=== PATIENT | male | born 2005 | race Caucasian/White ===

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

== ENCOUNTER 2025-06-22 19:33 | Emergency (ER) | payer SELFPAY ==
[2025-06-22 19:48] VITALS: RESP 14; TEMP 95.6; O2SAT 95
[2025-06-22] MEDS ORDERED: ZOFRAN ODT 4 MG ONE (19:53)
[2025-06-22] MEDS: ZOFRAN ODT 4 MG PO ONE (19:54)
--- NOTE | 2025-06-22 19:54 | ERPHSYRPT ---
- History of Present Illness Time Seen by Provider: 06/22/25 19:45 Source: patient Patient Subjective Stated Complaint: pt states that he has vomited 5 times in the past hour Triage Nursing Assessment: pt ambulated into the er; pt is axo x4; c/o N/V/D; pt denies pain; abd soft, round, nontender; active bowel sounds in all quads; skin PDW; no respiratory distress present; hypertensive Physician History: 19-year-old with reports he got sick 24 hours ago. He states he has had watery diarrhea. He reports he has vomited 4-5 times. He also has a mostly nonproductive cough. Thinks he could have had a low-grade fever yesterday. He has no abdominal pain on exam at this time. He has no urinary symptoms. He is not short of breath. Member sick with a similar symptoms this week Allergies/Adverse Reactions: No Known Drug Allergies Allergy (Verified 06/22/25 19:39) Immunizations Up to Date: Yes Travel Risk - International Travel Have you traveled outside of the country in past 3 weeks: No - Emerging Infectious Disease Are you exhibiting symptoms associated with any current EIDs: Yes Symptoms: Diarrhea, Vomitting - Review of Systems Constitutional: No Fever, No Chills Eyes: No Symptoms Ears, Nose, & Throat: No Symptoms Respiratory: Cough, No Dyspnea Cardiac: No Chest Pain, No Edema, No Syncope Abdominal/Gastrointestinal: Nausea, Vomiting, No Abdominal Pain, No Diarrhea, No Constipation, No Melena Genitourinary Symptoms: No Dysuria Musculoskeletal: No Back Pain, No Neck Pain Skin: No Rash Neurological: No Dizziness, No Focal Weakness, No Sensory Changes Psychological: No Symptoms Endocrine: No Symptoms All Other Systems: Reviewed and Negative - Past Medical History Pertinent Past Medical History: No - Past Surgical History Past Surgical History: No - Social History Smoking Status: Light tobacco smoker Exposure to second hand smoke: Yes Drug Use: none - Social Determinants of Health Will the patient participate in the screening: Yes Do you worry about a steady place to live?: No Do you have any problems with any of the following?: No known problems In the past 12 months,have you had to go without utilities?: No Transportation Issues: No Has anyone in your support network made you feel unsafe?: No Have you or anyone in your house had to go w/o enough food: No - Nursing Vital Signs Nursing Vital Signs: Initial Vital Signs Pulse Rate 92 H 06/22/25 19:38 Blood Pressure 153/67 06/22/25 19:38 O2 Sat by Pulse Oximetry 95 06/22/25 19:38 Pain Scale Pain Intensity 0 - Physical Exam General Appearance: no apparent distress, alert, other (Well-appearing, nontoxic, well-hydrated) Eye Exam: PERRL/EOMI, eyes nml inspection Ears, Nose, Throat Exam: normal ENT inspection, TMs normal, pharynx normal, moist mucous membranes Neck Exam: normal inspection, non-tender, supple, full range of motion Respiratory Exam: normal breath sounds, lungs clear, No respiratory distress Cardiovascular Exam: regular rate/rhythm, normal heart sounds, normal peripheral pulses Gastrointestinal/Abdomen Exam: soft, No tenderness, No mass, No organomegaly Back Exam: normal inspection, normal range of motion, No CVA tenderness, No vertebral tenderness Extremity Exam: normal inspection, normal range of motion, pelvis stable Neurologic Exam: alert, oriented x 3, cooperative, normal mood/affect, nml cerebellar function, nml station & gait, sensation nml, No motor deficits Skin Exam: normal color, warm, dry, No rash Lymphatic Exam: No adenopathy SpO2 Interpretation: normal SpO2: 95 Ordered Tests: Medication Summary Discontinued Medications Generic Name Dose Route Start Last Admin Trade Name Doug PRN Reason Stop Dose Admin Ondansetron HCl 8 mg 06/22/25 19:48 06/22/25 19:54 Zofran 4 Mg/Udtablet Orally Disintegrating PO 06/22/25 19:49 8 mg STAT ONE Administration Ondansetron HCl Confirm 06/22/25 19:53 Zofran 4 Mg/Udtablet Orally Disintegrating Administered 06/22/25 19:54 Dose 8 mg .ROUTE .STK-MED ONE - Progress Progress: improved Progress Note: 06/22/25 19:51 Patient feels slightly improved on arrival. No nausea vomiting diarrhea and a dry cough. Suspect a viral etiology. Unremarkable exam. Offered labs and IV fluids patient is requesting to try oral Zofran. Reports that he did not have improvement with this he would return for recheck. 06/22/25 20:29 tolerating fluids dc with zofran and return instrx - Departure Departure Disposition: Home Clinical Impression: Viral syndrome Condition: Good Critical Care Time: No Referrals: ASIM DORAN [NON-STAFF [facility]IVILEGES, INTERNAL MEDICINE] - Follow up/PCP as directed Additional Instructions: She got today taking mostly small sips of fluids at a time and the nausea medication. If you do not feel improved with medication or have any keep down fluids return for worsening symptoms or concerns Prescriptions: Ondansetron ODT 4 MG [Zofran Odt 4 mg] 4 mg PO Q6H PRN PRN #10 tablet PRN Reason: Nausea
[2025-06-22 20:32] VITALS: BP 125/59; PULSE 71
== END 2025-06-22 20:37 | disposition home or self-care (01) ==
LOC: ED 19:33
DX: B34.9 Viral infection, unspecified (principal); R11.2 Nausea with vomiting, unspecified; R19.7 Diarrhea, unspecified; R05.1 Acute cough; Z72.0 Tobacco use; Z79.899 Other long term (current) drug therapy